=== PATIENT | male | born 1990 | race Caucasian/White ===

== ENCOUNTER 2018-03-25 12:16 | Emergency (ER) | payer BC ==
[2018-03-25] MEDS ORDERED: Dexamethasone 4 MG TAB ONE (12:34)
== END 2018-03-25 12:40 | disposition home or self-care (01) ==
LOC: BURERS 12:16
DX: J06.9 Acute upper respiratory infection, unspecified (principal); F17.220 Nicotine dependence, chewing tobacco, uncomplicated
CPT/HCPCS: 99283; J8540